=== PATIENT | female | born 1945 | race Caucasian/White ===

== ENCOUNTER → 2017-10-17 | Outpatient (CLI) | payer MEDICARE, BC ==
[~2017-10-17] MED LIST: LIPITOR10 MG PO; PRILOSEC OTC20 MG
--- NOTE | 2017-10-17 16:01 | Diagnostic Imaging Report ---
EXAMINATION: MRI of the brain without contrast. HISTORY: Acute onset headaches COMPARISON: Brain MRI on 11/18/2011 TECHNIQUE: Sagittal T2; axial DWI, T2, FLAIR, T1-IR, T2 gradient echo; coronal FLAIR. IMAGE QUALITY: Adequate. FINDINGS: Parenchyma: 1. Few scattered white matter T2 and FLAIR hyperintense foci, most likely nonspecific chronic microvascular ischemic changes. 2. Small about 2 mm DWI hyperintense focus in the right middle frontal gyrus without ADC correlation likely corresponds to a small chronic lacunar infarct. Otherwise no abnormal signal intensity in the brain parenchyma. 3. No mass, hemorrhage, acute or chronic infarcts. Skull: Unremarkable. Vessels: Expected flow voids present in the major arteries and dural sinuses. Extra-axial spaces: No abnormal signal intensity or mass effect. Brain volume: Within normal limits for age. Ventricles: No hydrocephalus or displacement. Foramen magnum: Unremarkable. Sella: Unremarkable. Paranasal / mastoid sinuses: No significant inflammatory disease. IMPRESSION: 1. No intracranial mass, hydrocephalus or acute infarct. 2. Mild chronic microvascular ischemic changes as detailed above. Signed by: Dr. Oralia Gomez M.D. on 10/17/2017 3:57 PM
== END ==
LOC: CARD 14:37
PROVIDERS: ATTEND Family Medicine
DX: R51 Headache (principal); R09.89 Other specified symptoms and signs involving the circulatory and respiratory systems; Z80.8 Family history of malignant neoplasm of other organs or systems
CPT/HCPCS: 70551; 93880

== ENCOUNTER → 2021-10-23 | Outpatient (CLI) | payer MEDICARE, BC | LOC: MRI 12:33 | PROVIDERS: ATTEND Family Medicine | DX: G43.109 Migraine with aura, not intractable, without status migrainosus (principal); R20.2 Paresthesia of skin; I67.2 Cerebral atherosclerosis | CPT/HCPCS: 70551 ==

== ENCOUNTER 2022-10-16 00:06 | Emergency (ER) | payer MEDICARE, BC ==
[~2022-10-16] VITALS: Ht 162.6 cm; Wt 61.2 kg
[~2022-10-16 00:06] MED LIST changes: +OMEPRAZOLE20 M2 PO
[2022-10-16 00:52] LABS: BASOPHILS # (AUTO) 0.1 (0.0-0.1); EOSINOPHILS # (AUTO) 0.3 (0.0-0.4); EOSINOPHILS % 2.7 % (0.0-6.0); HEMATOCRIT 43.4 % (34.2-44.1); LYMPHOCYTES # (AUTO) 4.7 (1.0-3.2); MEAN CORPUSCULAR HEMOGLOBIN 29.9 pg (28-32); MEAN CORPUSCULAR HGB CONC 32.3 g/dL (31-35); MEAN CORPUSCULAR VOLUME 92.5 fL (81-99); MONOCYTES # (AUTO) 0.6 (0.2-0.8); MONOCYTES % 5.5 % (4.4-11.3); NEUTROPHILS # (AUTO) 5.7 (2.1-6.9); NEUTROPHILS % 49.6 % (38.7-80.0); PLATELET COUNT 265 x10e3/uL (140-360); RED BLOOD COUNT 4.69 x10e6/uL (3.6-5.1); RED CELL DISTRIBUTION WIDTH 14.6 % (11.7-14.4)
[2022-10-16] MEDS ORDERED: Morphine 4mg INJECTION 4 MG/ML INJ IV STA (00:59)
[2022-10-16] MEDS ORDERED: ONDANSETRON HCL INJ 2MG/ML 2ML 2 MG/ML VIAL IV STA (00:59)
[2022-10-16] MEDS ORDERED: Morphine 4mg INJECTION 4 MG/ML INJ ONE (01:01)
[2022-10-16] MEDS ORDERED: ONDANSETRON HCL INJ 2MG/ML 2ML 2 MG/ML VIAL ONE (01:01)
[2022-10-16 01:03] LABS: ALBUMIN 4.1 g/dL (3.5-5.0); ALBUMIN/GLOBULIN RATIO 1.4 (0.8-2.0); CALCIUM 9.9 mg/dL (8.4-10.2); CREATININE, SERUM 1.42 mg/dL (0.57-1.11)
[2022-10-16] MEDS ORDERED: SODIUM CHLORIDE 0.9% 1000ML 1,000 ML IV STA (01:05)
[2022-10-16] MEDS ORDERED: LEVOFLOXACIN 750MG/D5W 150ML 150 ML IV SCH (03:00)
[2022-10-16 03:23] LABS: CLARITY,URINE CLEAR (CLEAR); COLOR,URINE YELLOW (YELLOW); KETONES,URINE NEGATIVE (NEGATIVE); LEUKOCYTE ESTERASE ,URINE NEGATIVE (NEGATIVE); NITRITE,URINE NEGATIVE (NEGATIVE); PROTEIN,URINE DIPSTICK NEGATIVE (NEGATIVE); URINE UROBILINOGEN 0.2 mg/dL (0.2 - 1)
[2022-10-16 03:24] LABS: BACTERIA,URINE FEW /HPF; EPITHELIAL CELLS,URINE FEW /LPF; RBC,URINE 0-5 /HPF (0-5); WBC,URINE (MAN) 0-5 /HPF (0-5)
[2022-10-16 04:08] VITALS: O2SAT 99
[2022-10-16] MEDS ORDERED: METRONIDAZOLE500 MG PO (04:22)
[2022-10-16] MEDS ORDERED: ONDANSETRON ODT4 MG PO (04:22)
[2022-10-16] MEDS ORDERED: ULTRAM 50MG50 MG PO (04:22)
[2022-10-18] MEDS ORDERED: LEVOFLOXACIN 750MG/D5W 150ML 150 ML IV SCH (09:00)
== END 2022-10-16 04:42 | disposition home or self-care (01) ==
LOC: ER 00:38
DX: R10.13 Epigastric pain (principal); K81.9 Cholecystitis, unspecified; R11.2 Nausea with vomiting, unspecified; E80.6 Other disorders of bilirubin metabolism; N28.9 Disorder of kidney and ureter, unspecified; Z20.822 Contact with and (suspected) exposure to COVID-19
CPT/HCPCS: 36415; 74176; 80053; 81001; 83690; 85025; 93005; 99284; J2270; J2405; J7030; U0002

== ENCOUNTER → 2022-11-15 | Outpatient (CLI) | payer MEDICARE, BC ==
[~2022-11-15] MED LIST changes: +METRONIDAZOLE500 MG PO; +ONDANSETRON ODT4 MG PO; +ULTRAM 50MG50 MG PO
== END ==
LOC: CT 10:03
PROVIDERS: ATTEND Family Medicine
DX: R05.3 Chronic cough (principal)
CPT/HCPCS: 71250

== ENCOUNTER 2025-02-19 11:08 | Observation (INO) | payer MEDICARE, BC ==
[~2025-02-19] VITALS: Ht 160 cm; Wt 62.6 kg
[~2025-02-19 11:08] MED LIST changes: +ACETAMINOPHEN325 M1 PO; +CIPRO250 MG PO; +DICYCLOMINE HCL20 MG PO; +ONDANSETRON ODT4 MG SL; +PANTOPRAZOLE SO40 MG PO
[2025-02-19] MEDS ORDERED: SODIUM CHLORIDE FLUSH 10 ML SYR IV PRN (11:30)
[2025-02-19 11:44] LABS: BASOPHILS % 0.7 % (0.0-1.0); EOSINOPHILS % 2.9 % (0.0-6.0); LYMPHOCYTES % 48.9 % (18.0-39.1); MONOCYTES % 6.9 % (4.4-11.3); NEUTROPHILS % 40.4 % (38.7-80.0); RED CELL DISTRIBUTION WIDTH 14.8 % (11.7-14.4)
[2025-02-19 11:57] LABS: INR 0.91
[2025-02-19 12:02] LABS: EST GLOMERULAR FILTRATION RATE 38.0 ML/MIN (>=60)
[2025-02-19] MEDS: LABETALOL HCL 5 MG/ML 20ML VIAL IV STA (12:18)
[2025-02-19] MEDS: HYDROCORTISONE SOD SUCCINATE 100 MG VIAL IV SCH (13:07)
[2025-02-19 13:14] LABS: BASOPHILS % (MANUAL) 1 % (0-1.5); EOSINOPHILS % (MANUAL) 4 % (0-7); LYMPHOCYTES % (MANUAL) 49 % (19-48); MONOCYTES % (MANUAL) 6 % (3.4-9.0); NEUTROPHILS % (MANUAL) 37 % (40-74); PLATELET ESTIMATE ADEQUATE; PLATELET MORPHOLOGY COMMENT NORMAL; RBC MORPHOLOGY COMMENT NORMAL; REACTIVE LYMPHOCYTES 3
[2025-02-19] MEDS: SODIUM CHLORIDE 0.9% 1000ML 1,000 ML IV ONE (13:26)
[2025-02-19] MEDS: DIPHENHYDRAMINE HCL INJ 50 MG/ML VIAL IV ONE (16:54)
[2025-02-19] MEDS ORDERED: ONDANSETRON HCL INJ 2MG/ML 2ML 2 MG/ML VIAL IV PRN (18:15)
[2025-02-19] MEDS ORDERED: SODIUM CHLORIDE FLUSH 10 ML SYR INJ PRN (18:15)
[2025-02-19 21:30] VITALS: BP 123/73; PULSE 84; RESP 20; TEMP 99; O2SAT 97
[2025-02-19 21:45] VITALS: PULSE 84; RESP 18; TEMP 98.6
[2025-02-20] VITALS: BP 123/73; PULSE 84; RESP 20; TEMP 99; O2SAT 97
[2025-02-20] MEDS ORDERED: PREDNISONE10 MG PO (03:52)
[2025-02-20] MEDS ORDERED: METOPROLOL PO (03:54)
[2025-02-20 05:21] LABS: BASOPHILS % 0.1 % (0.0-1.0); EOSINOPHILS % 0.0 % (0.0-6.0); LYMPHOCYTES % 18.5 % (18.0-39.1); MONOCYTES % 3.7 % (4.4-11.3); NEUTROPHILS % 77.5 % (38.7-80.0); RED CELL DISTRIBUTION WIDTH 14.8 % (11.7-14.4)
[2025-02-20 05:50] LABS: EST GLOMERULAR FILTRATION RATE 41.0 ML/MIN (>=60)
[2025-02-20 06:04] VITALS: BP 151/77; PULSE 86; RESP 16; TEMP 98.1; O2SAT 96
[2025-02-20 08:09] VITALS: BP 132/86; PULSE 81; RESP 16; TEMP 98.4; O2SAT 97
[2025-02-20 08:20] VITALS: BP 132/86; PULSE 81; RESP 16; TEMP 98.4; O2SAT 97
[2025-02-20 11:45] VITALS: BP 129/86; PULSE 85; RESP 18; TEMP 98; O2SAT 98
[2025-02-20] MEDS ORDERED: NORVASC5 MG PO (13:04)
[2025-02-21] MEDS ORDERED: AMLODIPINE BESYLATE 5 MG TAB PO SCH (09:00)
== END 2025-02-20 14:25 | disposition home or self-care (01) ==
LOC: ER 11:28 → ERHOLD 18:08 → MED/SURG 21:05
PROVIDERS: ADMIT Internal Medicine; ATTEND Internal Medicine
DX: R07.89 Other chest pain (principal); I16.0 Hypertensive urgency; E78.5 Hyperlipidemia, unspecified; K21.9 Gastro-esophageal reflux disease without esophagitis; M19.90 Unspecified osteoarthritis, unspecified site; I12.9 Hypertensive chronic kidney disease with stage 1 through stage 4 chronic kidney disease, or unspecified chronic kidney disease; N18.9 Chronic kidney disease, unspecified; G43.909 Migraine, unspecified, not intractable, without status migrainosus; F41.9 Anxiety disorder, unspecified
CPT/HCPCS: 36415 ×2; 70450; 71045; 71275; 80053 ×2; 82550 ×2; 83880; 84484 ×2; 85025 ×2; 85379; 85610; 85730; 93005; 94760; 99285; G0378 ×2; J1200; J1720; J3490; J7030